=== PATIENT | female | born 1945 | race Hispanic/Latino ===

== ENCOUNTER 2017-04-08 10:51 | Emergency (ER) | payer MEDICARE ==
[2017-04-08 11:01] VITALS: BMI 21.2
[2017-04-08 11:03] VITALS: BP 134/65; PULSE 57; RESP 16; TEMP 98.2; O2SAT 97
[2017-04-08] MEDS ORDERED: Povidone Iodine Topical 10% Sol ONE (11:46)
--- NOTE | 2017-04-08 11:46 | ED PDOC ---
Lower Extremity Pain/Injury Time Seen by Provider: 04/08/17 11:17 Chief Complaint (Nursing): Lower Extremity Problem/Injury Chief Complaint (Provider): Right 1st toe pain History Per: Patient History/Exam Limitations: no limitations Onset/Duration Of Symptoms: Days Current Symptoms Are (Timing): Still Present Additional Complaint(s): 71yo female with past medical history of lupus, rheumatoid arthritis, presents to ED for evaluation of painful right 1st toe. Patient states she had an ingrown toenail removed by a content strategist in [facility] 1 week ago and since then has had pain to the plantar surface of her toe. She reports bleeding and redness to the toe. No fever, chills, numbness, tingling. No other complaints. Past Medical History Reviewed: Historical Data, Nursing Documentation, Vital Signs Vital Signs: Last Vital Signs Temp 98.2 F 04/08/17 11:01 Pulse 57 L 04/08/17 11:01 Resp 16 04/08/17 11:01 BP 134/65 04/08/17 11:01 Pulse Ox 97 04/08/17 11:01 - Medical History PMH: Rheumatoid Arthritis Other PMH: Lupus - Surgical History Surgical History: No Surg Hx - Family History Family History: States: No Known Family Hx - Home Medications Home Medications: Ambulatory Orders Medication Instructions Recorded Cephalexin [cephalexin] 500 mg PO QID #28 cap 04/08/17 Naproxen [Naprosyn] 500 mg PO BID PRN #15 tablet 04/08/17 - Allergies Allergies/Adverse Reactions: Allergies Allergy/AdvReac Type Severity Reaction Status Date / Time No Known Allergies Allergy Verified 04/08/17 11:36 Review of Systems ROS Statement: Except As Marked, All Systems Reviewed And Found Negative Constitutional: Negative for: Fever, Chills Musculoskeletal: Positive for: Foot Pain (right great toe pain) Neurological: Negative for: Numbness, Other (tingling) Physical Exam - Reviewed Nursing Documentation Reviewed: Yes Vital Signs Reviewed: Yes - Physical Exam Appears: Positive for: Non-toxic, No Acute Distress Head Exam: Positive for: ATRAUMATIC, NORMAL INSPECTION, NORMOCEPHALIC Skin: Positive for: Normal Color Eye Exam: Positive for: Normal appearance Neck: Positive for: Supple Cardiovascular/Chest: Positive for: Regular Rate, Rhythm Respiratory: Positive for: Normal Breath Sounds. Negative for: Respiratory Distress Extremity: Positive for: Other (right 1st toe erythematous and edematous; plantar surface with minimal maceration of skin, no active bleeding or discharge.) Neurologic/Psych: Positive for: Alert, Oriented. Negative for: Motor/Sensory Deficits - ECG O2 Sat by Pulse Oximetry: 97 (RA) Pulse Ox Interpretation: Normal Medical Decision Making Medical Decision Making: Time: 1120 Impression: right great toe pain Plan: -- Call placed to podiatry resident -- XR Right foot Reassess Scribe Attestation: Documented by Ashley Morse acting as a scribe for Vivien Dave MD. Provider Attestation: All medical record entries made by the Scribe were at my direction and personally dictated by me. I have reviewed the chart and agree that the record accurately reflects my personal performance of the history, physical exam, medical decision making, and the department course for this patient. I have also personally directed, reviewed, and agree with the discharge instructions and disposition. Disposition - Clinical Impression Clinical Impression: Ingrown toenail of right foot with infection - Disposition Referrals: Podiatry Clinic [Outside] Disposition: Routine/Home Disposition Time: 12:18 Condition: STABLE Prescriptions: Cephalexin [cephalexin] 500 mg PO QID #28 cap Naproxen [Naprosyn] 500 mg PO BID PRN #15 tablet PRN Reason: Pain, Moderate (4-7) Instructions: Cellulitis (ED), Ingrown Nail (ED) Forms: [employer] ([place])
--- NOTE | 2017-04-08 12:01 | CP.PCM.PN ---
Subjective - Date & Time of Evaluation Date of Evaluation: 04/08/17 Time of Evaluation: 11:56 - Subjective Subjective: 71 y/o female seen in ED for right big toe redness and swelling. Pt states she had an ingrown nail removed 1 week ago in a painter mirror's office in [facility]. Pt says she was given Bactrim but that sulfa drugs don't work. Pt says that the toe got more red over the last week. Pt denies seeing any pus come from the site. Pt denies having any pain in the toe since the nail was removed. Pt says she lives in [place] and will be returning back there in 11 days. PMH: RA, lupus PSH: breast cancer surgery All: NKDA Social: rare EtOH use; e-cigarette use, social marijuana use Objective - Vital Signs/Intake and Output Vital Signs (last 24 hours): Temp Pulse Resp BP Pulse Ox 98.2 F 57 L 16 134/65 97 04/08/17 11:01 04/08/17 11:01 04/08/17 11:01 04/08/17 11:01 04/08/17 11:55 - Constitutional Appears: Well, Non-toxic, No Acute Distress - Extremities Exam Additional comments: RLE focused exam: Vasc: DP/PT pulses palpable 2/4. Temperature gradient warm to cool; increased warmth noted to hallux. Localized pedal edema noted to hallux. Derm: Erythema with cellulitic skin changes noted from level of proximal phalanx extending distally to tip of digit. No open lesions noted. Superficial abrasion with dry sanguinous bed noted to plantar aspect of hallux. Interdigital maceration noted to 3rd and 4th interspaces. Ortho: No tenderness noted to palpation of right hallux toenail or right hallux. Hallux ROM WNL on active and passive assessment. Neuro: Protective sensation grossly intact - Neurological Exam Neurological Exam: Alert, Awake, Oriented x3 - Psychiatric Exam Psychiatric exam: Normal Affect, Normal Mood Assessment and Plan - Assessment and Plan (Free Text) Assessment: 71 y/o female 1 week s/p right hallux partial nail avulsion with redness, swelling and erythema Plan: Pt seen and evaluated in ED Discussed plan in detail with attending Dr. Sol X-rays of R foot reviewed by me, reveal no osseous abnormalities, no erosive changes, no acute fractures or dislocations ED to dispense Keflex - advised patient to take full course of antibiotics Cleansed right hallux toenail with sterile saline and gauze Dressed right hallux toenail with bacitracin and DSD Pt advised to keep dressing clean, dry and intact for the next 48 hours and use a plastic bag when showering Pt informed that she may remove dressing after 48 hours and perform daily Epsom salt soaks with warm water, and redress with bacitracin and a bandaid daily until her appointment with us Per patient's request, she is to follow up at [place] [facility] on Tuesday 04/17 due to proximity to her current place of stay prior to returning home to [place]
--- NOTE | 2017-04-08 16:59 | RAD ---
PROCEDURE: Radiographs of the right great toe. TECHNIQUE:: AP radiograph of the right foot, with oblique and lateral view of the right great toe. COMPARISON: None available. FINDINGS: BONES: No acute displaced fracture identified. Degenerative changes JOINTS: Talocalcaneal articulation appears grossly abnormal with loss of subtalar joint space and sclerosis evident. SOFT TISSUES: Unremarkable. No evidence of radiopaque foreign body. OTHER FINDINGS: None. IMPRESSION: No acute displaced fracture or dislocation identified. Talocalcaneal articulation appears grossly abnormal with loss of subtalar joint space and sclerosis evident. Question possibility of neuropathic arthritis. Correlate clinically. Suggest MRI for further evaluation if indicated.
== END 2017-04-08 13:31 | disposition home or self-care (01) ==
LOC: H.ER 10:51
DX: L60.0 Ingrowing nail (principal); L03.031 Cellulitis of right toe; M06.9 Rheumatoid arthritis, unspecified; M32.9 Systemic lupus erythematosus, unspecified; Z72.0 Tobacco use